=== PATIENT | male | born 1975 | race Caucasian/White ===

== ENCOUNTER 2016-09-08 18:17 | Emergency (ER) | payer BC ==
[~2016-09-08] VITALS: Ht 172.7 cm; Wt 76.2 kg
[2016-09-08] MEDS ORDERED: Morphine Sulfate 4mg/ml Inj IVP ONE ×2 (19:15→21:15)
--- NOTE | 2016-09-08 19:19 | Emergency Room Report ---
History of Present Illness General Chief Complaint: Abdominal Pain Source: Patient Present Illness HPI Patient reports diffuse abdominal pain onset today He reports that he has a history of Crohn's disease had bowel torsion 2 years ago Patient has a slight at midnight and as the pain increased he was concerning came to the ER Denies any vomiting He feels that he is passing gas however decreased bowel movements Pain is 6/10 in as any fevers or chills denies any trauma Denies any blood in stool Allergies: Coded Allergies: No Known Allergies (Unverified , 09/08/16) Patient History Past Medical History: see triage record Pertinent Family History: none Reviewed Nursing Documentation: PMH: Agreed, PSxH: Agreed Nursing Documentation-PMH Past Medical History: No History, Except For Hx Cardiac Problems: No - crohn's disease Review of Systems All Other Systems: negative except mentioned in HPI Physical Exam Vital Signs Date Time Temp Pulse Resp B/P Pulse Ox O2 Delivery O2 Flow Rate FiO2 09/08/16 18:21 98.1 88 20 155/96 100 Room Air Sp02 EP Interpretation: reviewed, normal General Appearance: well appearing, no apparent distress Head: normocephalic, atraumatic Eyes: bilateral eye EOMI, bilateral eye PERRL ENT: hearing grossly normal, normal pharynx, TMs + canals normal, uvula midline Neck: full range of motion, supple, no meningismus, no bony tend Respiratory: lungs clear, normal breath sounds, no rhonchi, no respiratory distress, no retraction, no accessory muscle use Cardiovascular #1: normal peripheral pulses, regular rate, rhythm, no edema, no gallop, no JVD, no murmur Gastrointestinal: normal bowel sounds, non tender, soft, no mass, no organomegaly, non-distended, no guarding, no hernia, no pulsatile mass, no rebound Genitourinary: no CVA tenderness Musculoskeletal: normal inspection Neurologic: oriented x3, responsive, components engineer III-XII nml as tested, motor strength/ tone normal, sensory intact Psychiatric: mood/affect normal Skin: normal color, no rash, warm/dry, palpation normal Lymphatic: normal inspection, no adenopathy Medical Decision Making Diagnostic Impression: Primary Impression: Abdominal pain ER Course With the history exam and presentation, multiple differentials considered, including but not limited to appendicitis, gastritis, Crohn's flare , bowel obstruction ,cholecystitis, diverticulitis Patient had CT abdomen pelvis along with blood work obtained Case is discussed closely with the patient's specialist At this time it is felt that there is some likely inflammatory process at this time but no obvious obstruction Patient was provided with further pain medicine and IV hydration low dose steroid All done with consultation The patient will have initial conservative outpatient trial pt will take walt at home Labs Test 09/08/16 19:19 White Blood Count 11.0 K/UL (4.8-10.8) Red Blood Count 5.48 M/UL (4.70-6.10) Hemoglobin 16.7 G/DL (14.2-18.0) Hematocrit 48.6 % (42.0-52.0) Mean Corpuscular Volume 89 FL (80-99) Mean Corpuscular Hemoglobin 30.5 PG (27.0-31.0) Mean Corpuscular Hemoglobin Concent 34.5 G/DL (32.0-36.0) Red Cell Distribution Width 11.4 % (11.6-14.8) Platelet Count 148 K/UL (150-450) Mean Platelet Volume 11.3 FL (6.5-10.1) Neutrophils (%) (Auto) 75.2 % (45.0-75.0) Lymphocytes (%) (Auto) 15.9 % (20.0-45.0) Monocytes (%) (Auto) 7.8 % (1.0-10.0) Eosinophils (%) (Auto) 0.6 % (0.0-3.0) Basophils (%) (Auto) 0.5 % (0.0-2.0) Erythrocyte Sedimentation Rate 5 MM/HR (0-15) Sodium Level 137 mEQ/L (135-145) Potassium Level 3.9 mEQ/L (3.4-4.9) Chloride Level 96 mEQ/L (98-107) Carbon Dioxide Level 27 mEQ/L (20-30) Anion Gap 14 (5-15) Blood Urea Nitrogen 14 mg/dL (7-23) Creatinine 1.1 mg/dL (0.7-1.2) Estimat Glomerular Filtration Rate > 60 mL/min (>60) Glucose Level 110 mg/dL (74-106) Calcium Level 9.6 mg/dL (8.6-10.2) Total Bilirubin 0.5 mg/dL (0.0-1.2) Aspartate Amino Transf (AST/SGOT) 18 U/L (5-40) Alanine Aminotransferase (ALT/SGPT) 16 U/L (3-41) Alkaline Phosphatase 68 U/L (40-129) Total Protein 7.2 g/dL (6.6-8.7) Albumin 4.3 g/dL (3.5-5.2) Globulin 2.9 g/dL Albumin/Globulin Ratio 1.4 (1.0-2.7) Lipase 30 U/L (< 60) CT/MRI/US Diagnostic Results CT/MRI/US Diagnostic Results : Impression CT abdomen pelvis segments of small bowel wall thickening and adjacent proliferation in line with Crohn's disease mildly dilated small bowel loops right abdomen with fecalization Last Vital Signs Date Time Temp Pulse Resp B/P Pulse Ox O2 Delivery O2 Flow Rate FiO2 09/08/16 18:21 98.1 88 20 155/96 100 Room Air Status: improved Disposition: HOME, SELF-CARE Condition: Improved Additional Instructions: Patient is provided with the discharge instructions notified to follow up with primary doctor in the next 2-3 days otherwise return to the er with any worsening symptoms. Please note that this report is being documented using EQUISO technology. This can lead to erroneous entry secondary to incorrect interpretation by the dictating instrument. ENRIQUETA MAX D.O. Sep 08, 2016 19:19
[2016-09-08 19:55] VITALS: BP 157/92
[2016-09-08 20:09] LABS: BASOPHILS % (AUTO) 0.5 % (0.0-2.0); EOSINOPHILS % (AUTO) 0.6 % (0.0-3.0); LYMPHOCYTES % (AUTO) 15.9 % (20.0-45.0); MEAN CORPUSCULAR HEMOGLOBIN 30.5 PG (27.0-31.0); MEAN CORPUSCULAR HGB CONC 34.5 G/DL (32.0-36.0); MEAN CORPUSCULAR VOLUME 89 FL (80-99); MEAN PLATELET VOLUME 11.3 FL (6.5-10.1); MONOCYTES % (AUTO) 7.8 % (1.0-10.0); NEUTROPHILS % (AUTO) 75.2 % (45.0-75.0); PLATELET COUNT 148 K/UL (150-450); RED BLOOD COUNT 5.48 M/UL (4.70-6.10); RED CELL DISTRIBUTION WIDTH 11.4 % (11.6-14.8)
[2016-09-08 20:38] LABS: ALANINE AMINOTRANSFERASE 16 U/L (3-41); ALBUMIN/GLOBULIN RATIO 1.4 (1.0-2.7); ANION GAP 14 (5-15); ASPARTATE AMINO TRANSFERASE 18 U/L (5-40); CALCIUM 9.6 mg/dL (8.6-10.2); CARBON DIOXIDE 27 mEQ/L (20-30); CHLORIDE 96 mEQ/L (98-107); CREATININE 1.1 mg/dL (0.7-1.2); GLOMERULAR FILTRATION RATE > 60 mL/min (>60); HEMOLYSIS 11; LIPASE 30 U/L (< 60); POTASSIUM 3.9 mEQ/L (3.4-4.9); SODIUM 137 mEQ/L (135-145); TOTAL PROTEIN 7.2 g/dL (6.6-8.7)
[2016-09-08] MEDS ORDERED: Solu-MEDROL 40mg Inj IVP ONE (21:45)
[2016-09-08] MEDS ORDERED: PredniSONE 20mg tab ORAL ONE (21:45)
[2016-09-08] MEDS ORDERED: Solu-MEDROL 125mg Inj IVP ONE (21:45)
[2016-09-08 21:55] VITALS: BP 153/98
[2016-09-08 22:41] VITALS: BP 153/98
--- NOTE | 2016-09-09 08:59 | Diagnostic Imaging Report ---
Indications: Abdominal pain, history of Crohn's disease Technique: Continuous helical CT imaging of the abdomen and pelvis was performed with automatic exposure control following administration of oral and intravenous nonionic iodine contrast, on a Siemens sensation [address] scanner. Axial, coronal, and sagittal images were reconstructed at 5 mm slice thickness. CTDI volume(s): 16 mGy Total DLP: 790 mGy-cm Findings: Comparison: None Oral contrast is passed throughout the gastrointestinal tract to the level of mid to distal small bowel. Multiple loops of ileum extending to the terminal ileum are distended with air-fluid levels, fecalization, suggestion of mild mural thickening, mild adjacent stranding. Appendix not identified. Unopacified colon demonstrates multiple segments of underdistention. No extraluminal gas or fluid collections. Remainder visualized abdominopelvic anatomy demonstrates no other obvious acute abnormality. Lung bases and adjacent pleural surfaces clear. No focal skeletal abnormality identified. IMPRESSION: Distal small bowel findings compatible with enteritis, may represent acute exacerbation of Crohn's disease No other evidence of acute disease, limited as described Nonvisualization of appendix This correlates with Dr. Hunter's preliminary report.
== END 2016-09-08 22:43 | disposition home or self-care (01) ==
LOC: EMR 21:13
DX: R10.9 Unspecified abdominal pain (principal); K50.90 Crohn's disease, unspecified, without complications
CPT/HCPCS: 36415; 74177; 80053; 83690; 85025; 85651; 96360; 96361; 96374; 96375; 99284; J2270; J2405; J2920; Q9967